=== PATIENT | male | born 2000 | race American Indian/Alaskan Native ===

== ENCOUNTER 2019-11-27 21:33 | Emergency (ER) | payer OTHER ==
[2019-11-27 22:26] LABS: ANION GAP 13.8 mEq/L (7-13); CHLORIDE,CL 103 mmol/L (98-107); SODIUM,NA 141 mmol/L (136-145)
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
[2019-11-27] MEDS ORDERED: Ondansetron 4 MG Tab.DIS PO ONE (23:20)
== END 2019-11-27 23:34 | disposition home or self-care (01) ==
LOC: DL.ED 21:33
DX: F07.81 Postconcussional syndrome (principal)
CPT/HCPCS: 36415; 70450; 72125; 73020; 80053; 80307; 85025; 99284; A9270